=== PATIENT | male | born 1960 | race African-American/Black ===

== ENCOUNTER 2018-08-12 11:50 | Inpatient (IN) | payer MEDICAID, OTHER ==
[~2018-08-12] VITALS: Ht 177.8 cm; Wt 94.3 kg
[2018-08-12] MEDS ORDERED: IPRATROPIUM BROMIDE (0.02%) 0.5MG/2.5ML NEB HHN STA (12:21)
[2018-08-12] MEDS ORDERED: ALBUTEROL (0.083%) 2.5MG/3ML NEB HHN STA (12:21)
[2018-08-12] MEDS ORDERED: FUROSEMIDE 40MG/4ML VIAL IVP ONE (12:30)
[2018-08-12 12:44] LABS: HEMATOCRIT. 40.1 % (42.0-52.0); HEMOGLOBIN. 12.6 g/dL (14.0-18.0); MEAN CORPUSCULAR HEMOGLOBIN 21.4 pg (28.0-32.0); MEAN PLATELET VOLUME 9.4 fl (7.4-10.4); PLATELET 150 x1000/uL (130-400); RED BLOOD CELL COUNT 5.89 mill/uL (4.7-6.1); RED CELL DISTRIBUTION WIDTH 19.8 % (11.6-14.6)
[2018-08-12 12:46] LABS: CHLORIDE 109 mEq/L (98-107)
[2018-08-12 12:50] LABS: ETHANOL BLOOD < 10 mg/dL
[2018-08-12 12:59] LABS: D-DIMER 1.21 mg/L FEU (<0.50); INR 1.1
[2018-08-12 14:15] LABS: PLATELET ESTIMATE NORMAL
[2018-08-12] MEDS ORDERED: IPRATROPIUM/ALBUTEROL 0.5-3(2.5)MG/3ML NEB HHN PRN (14:30)
[2018-08-12] MEDS ORDERED: ONDANSETRON HCL 4MG/2ML INJ IV PRN (14:30)
[2018-08-12] MEDS ORDERED: IOHEXOL-350 100 ML BOTTLE ONE (14:31)
[2018-08-12 15:16] LABS: *AMPHETAMINES SCREEN URINE NEGATIVE (NEGATIVE); *BARBITURATES SCREEN URINE NEGATIVE (NEGATIVE); *BENZODIAZEPINES SCREEN URINE NEGATIVE (NEGATIVE); *COCAINE SCREEN URINE PRESUMTIVE POSITIVE (NEGATIVE)
[2018-08-12 15:17] LABS: CANNABINOID URINE SCREEN NEGATIVE (NEGATIVE); METHADONE URINE SCREEN NEGATIVE (NEGATIVE); OPIATES URINE SCREEN NEGATIVE (NEGATIVE); PHENCYCLIDINE URINE SCREEN NEGATIVE (NEGATIVE)
[2018-08-12 21:00] VITALS: BP 135/78
[2018-08-12 21:15] VITALS: BP 135/71
[2018-08-12] MEDS: NICOTINE 14MG PATCH TD SCH (22:00)
[2018-08-12] MEDS: METHYLPREDNISOLONE SOD SUCC 40 MG/ML VIAL IV SCH (22:38)
[2018-08-12] MEDS: FUROSEMIDE 40MG/4ML VIAL IVP SCH (22:44)
[2018-08-12] MEDS: NITROGLYCERIN OINT 1GM/INCH UDPKT TD SCH (22:45)
[2018-08-13] VITALS: BP 125/63
[2018-08-13] MEDS: IPRATROPIUM/ALBUTEROL 0.5-3(2.5)MG/3ML NEB HHN SCH ×2 (04:00→23:51)
[2018-08-13 05:51] LABS: HEMATOCRIT. 41.9 % (42.0-52.0); HEMOGLOBIN. 13.1 g/dL (14.0-18.0); MEAN CORPUSCULAR HEMOGLOBIN 21.4 pg (28.0-32.0); MEAN CORPUSCULAR VOLUME 68.4 fL (80.0-94.0); MEAN PLATELET VOLUME 9.9 fl (7.4-10.4); PLATELET 174 x1000/uL (130-400); RED BLOOD CELL COUNT 6.12 mill/uL (4.7-6.1)
[2018-08-13 05:53] LABS: CHLORIDE 106 mEq/L (98-107)
[2018-08-13] MEDS: METHYLPREDNISOLONE SOD SUCC 40 MG/ML VIAL IV SCH ×3 (06:45→21:09)
[2018-08-13] MEDS: NITROGLYCERIN OINT 1GM/INCH UDPKT TD SCH ×3 (06:46→21:10)
[2018-08-13 08:00] VITALS: BP 125/64
[2018-08-13] MEDS ORDERED: PNEUMOCOCCAL 23-VAL P-SAC VAC 0.5 ML IM ONE (08:00)
[2018-08-13] MEDS: LOSARTAN POTASSIUM 25 MG TABLET PO SCH (09:07)
[2018-08-13] MEDS: POTASSIUM CHLORIDE 20MEQ TABLET SR PO SCH ×2 (09:07→16:07)
[2018-08-13] MEDS: FUROSEMIDE 40MG/4ML VIAL IVP SCH (09:07)
[2018-08-13] MEDS: ASPIRIN 81MG EC TABLET PO SCH (09:07)
[2018-08-13] MEDS: ACETAMINOPHEN 325MG TABLET PO PRN ×2 (09:16→16:07)
[2018-08-13] MEDS ORDERED: FUROSEMIDE 40MG/4ML VIAL IVP SCH (09:30)
[2018-08-13 10:10] LABS: PLATELET ESTIMATE NORMAL
[2018-08-13 12:00] VITALS: BP 118/67
[2018-08-13 16:00] VITALS: BP 119/66
[2018-08-13] MEDS: FUROSEMIDE 100MG/10ML VIAL IV SCH (16:07)
[2018-08-13 20:24] VITALS: BP 115/54
[2018-08-13] MEDS: NICOTINE 14MG PATCH TD SCH (21:09)
[2018-08-13] MEDS: BUDESONIDE 0.5MG/2ML NEB HHN SCH (23:51)
[2018-08-14 00:14] VITALS: BP 121/58
[2018-08-14] MEDS: IPRATROPIUM/ALBUTEROL 0.5-3(2.5)MG/3ML NEB HHN SCH ×5 (03:18→19:55)
[2018-08-14 04:07] VITALS: BP 113/50
[2018-08-14] MEDS: METHYLPREDNISOLONE SOD SUCC 40 MG/ML VIAL IV SCH ×2 (05:23→13:17)
[2018-08-14] MEDS: NITROGLYCERIN OINT 1GM/INCH UDPKT TD SCH ×3 (05:23→21:15)
[2018-08-14 05:55] LABS: CHLORIDE 99 mEq/L (98-107)
[2018-08-14 06:36] LABS: HEMATOCRIT. 40.7 % (42.0-52.0); HEMOGLOBIN. 12.9 g/dL (14.0-18.0); MEAN CORPUSCULAR HEMOGLOBIN 21.7 pg (28.0-32.0); MEAN CORPUSCULAR VOLUME 68.2 fL (80.0-94.0); RED BLOOD CELL COUNT 5.97 mill/uL (4.7-6.1); RED CELL DISTRIBUTION WIDTH 19.5 % (11.6-14.6)
[2018-08-14 08:00] VITALS: BP 111/55
[2018-08-14] MEDS: BUDESONIDE 0.5MG/2ML NEB HHN SCH (08:40)
[2018-08-14 09:00] LABS: MEAN PLATELET VOLUME 10.5 fl (7.4-10.4); PLATELET 166 x1000/uL (130-400); PLATELET ESTIMATE NORMAL
[2018-08-14] MEDS: FUROSEMIDE 100MG/10ML VIAL IV SCH (09:13)
[2018-08-14] MEDS: LOSARTAN POTASSIUM 25 MG TABLET PO SCH (09:14)
[2018-08-14] MEDS: POTASSIUM CHLORIDE 20MEQ TABLET SR PO SCH ×2 (09:14→16:21)
[2018-08-14] MEDS: ASPIRIN 81MG EC TABLET PO SCH (09:14)
[2018-08-14] MEDS: ENOXAPARIN 40MG/0.4ML SYR SUBCUT SCH (11:10)
[2018-08-14 12:00] VITALS: BP 122/66
[2018-08-14 16:00] VITALS: BP 116/59
[2018-08-14] MEDS: FUROSEMIDE 40MG/4ML VIAL IV SCH (16:21)
[2018-08-14 20:00] VITALS: BP 112/55
[2018-08-14] MEDS: PREDNISONE 20MG TABLET PO SCH (20:09)
[2018-08-14] MEDS: NICOTINE 14MG PATCH TD SCH (21:15)
[2018-08-15] VITALS: BP 127/70
[2018-08-15 04:00] VITALS: BP 129/64
[2018-08-15] MEDS: NITROGLYCERIN OINT 1GM/INCH UDPKT TD SCH (05:13)
[2018-08-15] MEDS: BUDESONIDE 0.5MG/2ML NEB HHN SCH ×2 (07:32→20:28)
[2018-08-15] MEDS: IPRATROPIUM/ALBUTEROL 0.5-3(2.5)MG/3ML NEB HHN SCH ×5 (07:32→20:27)
[2018-08-15 08:00] VITALS: BP 126/63
[2018-08-15 08:00] LABS: HEMATOCRIT. 41.3 % (42.0-52.0); MEAN CORPUSCULAR HEMOGLOBIN 21.4 pg (28.0-32.0); MEAN PLATELET VOLUME 10.6 fl (7.4-10.4); PLATELET 188 x1000/uL (130-400); RED BLOOD CELL COUNT 6.08 mill/uL (4.7-6.1)
[2018-08-15 08:07] LABS: CHLORIDE 102 mEq/L (98-107)
[2018-08-15] MEDS: ASPIRIN 81MG EC TABLET PO SCH (09:27)
[2018-08-15] MEDS: FUROSEMIDE 40MG/4ML VIAL IV SCH ×2 (09:28→16:19)
[2018-08-15] MEDS: POTASSIUM CHLORIDE 20MEQ TABLET SR PO SCH (09:28)
[2018-08-15] MEDS: PREDNISONE 20MG TABLET PO SCH ×2 (09:28→16:19)
[2018-08-15] MEDS: LOSARTAN POTASSIUM 25 MG TABLET PO SCH (09:28)
[2018-08-15 10:46] LABS: PLATELET ESTIMATE NORMAL
[2018-08-15] MEDS: ENOXAPARIN 40MG/0.4ML SYR SUBCUT SCH (11:27)
[2018-08-15 12:00] VITALS: BP 127/73
[2018-08-15] MEDS: AMLODIPINE 2.5MG TABLET PO SCH ×2 (13:09→21:00)
[2018-08-15 17:04] VITALS: BP 118/62
[2018-08-15 20:00] VITALS: BP 109/59
[2018-08-15] MEDS: NICOTINE 14MG PATCH TD SCH (21:18)
[2018-08-16] VITALS: BP 118/59
[2018-08-16] MEDS: IPRATROPIUM/ALBUTEROL 0.5-3(2.5)MG/3ML NEB HHN SCH ×5 (00:15→16:00)
[2018-08-16 04:00] VITALS: BP 152/77
[2018-08-16 06:54] LABS: HEMATOCRIT. 40.7 % (42.0-52.0); HEMOGLOBIN. 12.7 g/dL (14.0-18.0); MEAN CORPUSCULAR HEMOGLOBIN 21.2 pg (28.0-32.0); RED BLOOD CELL COUNT 5.99 mill/uL (4.7-6.1); RED CELL DISTRIBUTION WIDTH 19.5 % (11.6-14.6)
[2018-08-16 06:57] LABS: CHLORIDE 102 mEq/L (98-107)
[2018-08-16 08:00] VITALS: BP 118/65
[2018-08-16 08:23] LABS: PLATELET 177 x1000/uL (130-400)
[2018-08-16 08:25] LABS: PLATELET ESTIMATE NORMAL
[2018-08-16] MEDS: FUROSEMIDE 40MG/4ML VIAL IV SCH ×2 (09:00→10:38)
[2018-08-16] MEDS: PREDNISONE 20MG TABLET PO SCH ×2 (10:35→17:32)
[2018-08-16] MEDS: LOSARTAN POTASSIUM 25 MG TABLET PO SCH (10:35)
[2018-08-16] MEDS: AMLODIPINE 2.5MG TABLET PO SCH (10:35)
[2018-08-16] MEDS: ENOXAPARIN 40MG/0.4ML SYR SUBCUT SCH (10:36)
[2018-08-16] MEDS: ASPIRIN 81MG EC TABLET PO SCH (10:39)
[2018-08-16] MEDS ORDERED: FUROSEMIDE 40MG TABLET PO SCH (11:15)
[2018-08-16 12:00] VITALS: BP 118/65
[2018-08-16 16:00] VITALS: BP 111/67
[2018-08-16 17:21] VITALS: BP_SYST 111; BP_SYST 133; BP_DIAS 67; BP_DIAS 70
== END 2018-08-16 18:43 | disposition home or self-care (01) | DRG 917 ==
LOC: ER 12:07 → 8WST 14:07 → ENRESERV 20:13
PROVIDERS: ADMIT Internal Medicine Nephrology; ATTEND Internal Medicine Nephrology
DX: T40.5X1A Poisoning by cocaine, accidental (unintentional), initial encounter (principal); J96.00 Acute respiratory failure, unspecified whether with hypoxia or hypercapnia; E43 Unspecified severe protein-calorie malnutrition; I50.43 Acute on chronic combined systolic (congestive) and diastolic (congestive) heart failure; J68.0 Bronchitis and pneumonitis due to chemicals, gases, fumes and vapors; I42.0 Dilated cardiomyopathy; E78.00 Pure hypercholesterolemia, unspecified; E78.5 Hyperlipidemia, unspecified; E87.6 Hypokalemia; E87.8 Other disorders of electrolyte and fluid balance, not elsewhere classified; F14.188 Cocaine abuse with other cocaine-induced disorder; F17.210 Nicotine dependence, cigarettes, uncomplicated; I11.0 Hypertensive heart disease with heart failure; I27.20 Pulmonary hypertension, unspecified; I50.82 Biventricular heart failure; I08.0 Rheumatic disorders of both mitral and aortic valves; I73.9 Peripheral vascular disease, unspecified; Z59.0 Homelessness; Z79.82 Long term (current) use of aspirin; Z91.14 Patient's other noncompliance with medication regimen; Z91.19 Patient's noncompliance with other medical treatment and regimen; Z68.29 Body mass index [BMI] 29.0-29.9, adult; Y92.89 Other specified places as the place of occurrence of the external cause; Z71.6 Tobacco abuse counseling
CPT/HCPCS: 36415; 71045; 71275; 80048; 80305; 80320; 83880; 84484; 85379; 90732; 93005; 93306; 94640; 96374; 99285; 99406; C1893; J1650; J1940; J2920; J7050; J7512; J7611; J7620; J7626; Q9967; G0480

== ENCOUNTER 2018-09-02 10:09 | Inpatient (IN) | payer OTHER ==
[~2018-09-02] VITALS: Ht 180.3 cm; Wt 87.1 kg
[2018-09-02 10:54] LABS: HEMATOCRIT. 39.6 % (42.0-52.0); HEMOGLOBIN. 12.6 g/dL (14.0-18.0); MEAN CORPUSCULAR HEMOGLOBIN 21.7 pg (28.0-32.0); MEAN CORPUSCULAR VOLUME 68.3 fL (80.0-94.0); MEAN PLATELET VOLUME 9.8 fl (7.4-10.4); PLATELET 136 x1000/uL (130-400); RED CELL DISTRIBUTION WIDTH 19.5 % (11.6-14.6)
[2018-09-02 10:57] LABS: CHLORIDE 110 mEq/L (98-107)
[2018-09-02 11:22] LABS: PLATELET ESTIMATE NORMAL
[2018-09-02] MEDS ORDERED: FUROSEMIDE 40MG/4ML VIAL IVP ONE (11:45)
[2018-09-02] MEDS ORDERED: ACETAMINOPHEN 325MG TABLET PO PRN (12:45)
[2018-09-02] MEDS ORDERED: DOCUSATE SODIUM 100MG CAPSULE PO PRN (12:45)
[2018-09-02] MEDS ORDERED: IPRATROPIUM/ALBUTEROL 0.5-3(2.5)MG/3ML NEB INH PRN (12:45)
[2018-09-02] MEDS ORDERED: ONDANSETRON HCL 4MG/2ML INJ IV PRN (12:45)
[2018-09-02] MEDS ORDERED: HYDROCODONE/ACETAMINOPHEN 5/325MG TABLET PO PRN (12:45)
[2018-09-02] MEDS ORDERED: GUAIFENESIN 200MG/10ML SUGAR FREE UDC PO PRN (12:45)
[2018-09-02] MEDS ORDERED: DIPHENHYDRAMINE 50MG/ML VIAL IV PRN (12:45)
[2018-09-02] MEDS ORDERED: CLONIDINE 0.1MG TABLET PO PRN (12:45)
[2018-09-02] MEDS ORDERED: MAGNESIUM/ALUMINUM HYDROXIDE/SIMETHICONE 30ML UDC PO PRN (12:45)
[2018-09-02 13:30] LABS: PHOSPHORUS 1.8 mg/dL (2.5-4.9)
[2018-09-02 14:00] VITALS: BP 126/65
[2018-09-02 14:15] VITALS: BP 126/65
[2018-09-02] MEDS: ENOXAPARIN 40MG/0.4ML SYR SUBCUT SCH (14:27)
[2018-09-02] MEDS: FUROSEMIDE 40MG/4ML VIAL IV SCH ×2 (14:27→18:50)
[2018-09-02 15:20] LABS: CREATINE KINASE MB FRACTION 1.3 ng/mL (0.5-3.6)
[2018-09-02 16:00] VITALS: BP 118/60
[2018-09-02 16:34] LABS: TOTAL IRON BINDING CAPACITY 274 ug/dL (250-450)
[2018-09-02 18:34] LABS: *AMPHETAMINES SCREEN URINE NEGATIVE (NEGATIVE); *BARBITURATES SCREEN URINE NEGATIVE (NEGATIVE)
[2018-09-02 18:35] LABS: *BENZODIAZEPINES SCREEN URINE NEGATIVE (NEGATIVE); *COCAINE SCREEN URINE PRESUMTIVE POSITIVE (NEGATIVE); CANNABINOID URINE SCREEN NEGATIVE (NEGATIVE); METHADONE URINE SCREEN NEGATIVE (NEGATIVE); OPIATES URINE SCREEN NEGATIVE (NEGATIVE); PHENCYCLIDINE URINE SCREEN NEGATIVE (NEGATIVE)
[2018-09-02] MEDS: AMLODIPINE 2.5MG TABLET PO SCH ×2 (18:50→20:49)
[2018-09-02] MEDS ORDERED: POTASSIUM CHLORIDE 20MEQ TABLET SR PO NR (19:00)
[2018-09-02 20:00] VITALS: BP 116/68
[2018-09-02 23:48] VITALS: BP 112/58
[2018-09-03 04:00] VITALS: BP 125/68
[2018-09-03] MEDS: FUROSEMIDE 40MG/4ML VIAL IV SCH ×2 (06:22→17:42)
[2018-09-03 06:29] LABS: CHLORIDE 103 mEq/L (98-107)
[2018-09-03 06:31] LABS: HEMATOCRIT. 41.4 % (42.0-52.0); MEAN CORPUSCULAR HEMOGLOBIN 21.7 pg (28.0-32.0); MEAN PLATELET VOLUME 9.9 fl (7.4-10.4); PLATELET 137 x1000/uL (130-400); RED CELL DISTRIBUTION WIDTH 19.2 % (11.6-14.6)
[2018-09-03 06:44] LABS: LDL CHOLESTEROL 92 mg/dL (5-100)
[2018-09-03 06:47] LABS: HDL CHOLESTEROL 71 mg/dL (40-59)
[2018-09-03 08:12] VITALS: BP 105/48
[2018-09-03] MEDS: AMLODIPINE 2.5MG TABLET PO SCH ×2 (08:51→21:21)
[2018-09-03 11:44] VITALS: BP 102/52
[2018-09-03] MEDS: ENOXAPARIN 40MG/0.4ML SYR SUBCUT SCH (16:02)
[2018-09-03 16:05] VITALS: BP 102/55
[2018-09-03 16:49] LABS: PLATELET ESTIMATE NORMAL
[2018-09-03 20:00] VITALS: BP 108/67
[2018-09-04 00:11] VITALS: BP 111/55
[2018-09-04 04:00] VITALS: BP 117/70
[2018-09-04] MEDS: FUROSEMIDE 40MG/4ML VIAL IV SCH (05:54)
[2018-09-04 08:21] VITALS: BP 114/66
[2018-09-04] MEDS: AMLODIPINE 2.5MG TABLET PO SCH ×2 (08:25→20:21)
[2018-09-04] MEDS ORDERED: POTASSIUM CHLORIDE 20MEQ TABLET SR PO NR (10:45)
[2018-09-04 12:00] VITALS: BP 92/57
[2018-09-04] MEDS: ENOXAPARIN 40MG/0.4ML SYR SUBCUT SCH (15:58)
[2018-09-04 16:00] VITALS: BP 101/63
[2018-09-04 20:00] VITALS: BP 103/60
[2018-09-04] MEDS: FUROSEMIDE 40MG TABLET PO SCH (20:27)
[2018-09-05] VITALS (7 sets, daily range): BP systolic 100–131; BP diastolic 54–72
[2018-09-05] MEDS: POTASSIUM CHLORIDE 20MEQ TABLET SR PO SCH (08:39)
[2018-09-05] MEDS: AMLODIPINE 2.5MG TABLET PO SCH ×2 (08:40→20:32)
[2018-09-05] MEDS: FUROSEMIDE 40MG TABLET PO SCH ×2 (08:40→20:29)
[2018-09-05] MEDS: ENOXAPARIN 40MG/0.4ML SYR SUBCUT SCH (15:37)
[2018-09-06 04:00] VITALS: BP 128/67
[2018-09-06 08:00] VITALS: BP 123/72
[2018-09-06] MEDS: POTASSIUM CHLORIDE 20MEQ TABLET SR PO SCH (08:25)
[2018-09-06] MEDS: FUROSEMIDE 40MG TABLET PO SCH ×2 (08:25→22:40)
[2018-09-06] MEDS: AMLODIPINE 2.5MG TABLET PO SCH ×2 (08:26→21:00)
[2018-09-06 12:00] VITALS: BP 109/62
[2018-09-06] MEDS: ENOXAPARIN 40MG/0.4ML SYR SUBCUT SCH (15:54)
[2018-09-06 16:00] VITALS: BP 115/63
[2018-09-06 18:13] VITALS: BP 151/53
== END 2018-09-07 06:00 | disposition home or self-care (01) | DRG 291 ==
LOC: ER 10:09 → 7WST 13:55
PROVIDERS: ADMIT Internal Medicine; ATTEND Internal Medicine
DX: I11.0 Hypertensive heart disease with heart failure (principal); E43 Unspecified severe protein-calorie malnutrition; I50.23 Acute on chronic systolic (congestive) heart failure; D50.9 Iron deficiency anemia, unspecified; E78.5 Hyperlipidemia, unspecified; E87.6 Hypokalemia; F17.200 Nicotine dependence, unspecified, uncomplicated; I27.20 Pulmonary hypertension, unspecified; J44.9 Chronic obstructive pulmonary disease, unspecified; F14.10 Cocaine abuse, uncomplicated; D72.819 Decreased white blood cell count, unspecified; I42.9 Cardiomyopathy, unspecified; E78.00 Pure hypercholesterolemia, unspecified; I08.0 Rheumatic disorders of both mitral and aortic valves; Z59.0 Homelessness; Z91.19 Patient's noncompliance with other medical treatment and regimen; Z68.26 Body mass index [BMI] 26.0-26.9, adult
CPT/HCPCS: 36415; 71045; 80061; 80305; 81025; 82550; 82553; 82728; 83540; 83550; 83735; 83880; 84100; 84443; 84484; 93005; 93970; 96374; 97162; 97166; 99285; J1650; J1940